=== PATIENT | male | born 1990 | race American Indian/Alaskan Native ===

== ENCOUNTER 2017-01-12 10:02 | Observation (INO) | payer MEDICAID, OTHER ==
[2017-01-12 10:12] VITALS: BMI 22.3
[2017-01-12] MEDS ORDERED: Sodium Chloride 0.9% 1,000 ML IV STA (10:17)
--- NOTE | 2017-01-12 10:17 | ED PDOC ---
Arrival/HPI - General Time Seen by Provider: 01/12/17 10:10 Historian: Patient - History of Present Illness Narrative History of Present Illness (Text): 01/12/17 10:19 26 year old male, no pmh, nkda, complaining of lt. sided chest pain started yesterday with no fall or trauma. Aching and sharp pain, on and off, aggravated by moving of the body especially in supine position to standing position, no alleviating factors, each episode is couple seconds, started about 2-3 weeks ago but severely last night, no coughing or night sweat, no IV drug use, no palpitation, no rash, no numbness or tingling. Pt. stated that the pain is non-radiating, no rash, no other medical or psychological complaints. Past Medical History - Provider Review Nursing Documentation Reviewed: Yes Family/Social History - Physician Review Nursing Documentation Reviewed: Yes Family/Social History: Unknown Family HX Allergies/Home Meds Allergies/Adverse Reactions: Allergies No Known Allergies Allergy (Verified 01/12/17 11:44) Home Medications: Home Meds Medication Instructions Recorded Confirmed No Known Home Med 01/12/17 01/12/17 Review of Systems - Review of Systems Constitutional: absent: Fatigue, Fevers Eyes: absent: Vision Changes ENT: absent: Hearing Changes Respiratory: absent: SOB, Cough Cardiovascular: Chest Pain. absent: Palpitations, Edema, Orthopnea, Syncope Gastrointestinal: absent: Abdominal Pain, Nausea, Vomiting Musculoskeletal: absent: Arthralgias, Back Pain Skin: absent: Rash, Pruritis Neurological: absent: Headache, Dizziness Physical Exam Vital Signs Reviewed: Yes Vital Signs Temp Pulse Resp BP Pulse Ox 01/12/17 11:30 98.5 F 48 L 17 116/88 100 01/12/17 10:15 98.5 F 63 17 129/85 100 Temperature: Afebrile Blood Pressure: Normal Pulse: Regular Respiratory Rate: Normal Appearance: Positive for: Well-Appearing, Non-Toxic, Comfortable Pain Distress: Mild Mental Status: Positive for: Alert and Oriented X 3 - Systems Exam Head: Present: Atraumatic, Normocephalic Pupils: Present: PERRL Extroacular Muscles: Present: EOMI Conjunctiva: Present: Normal Mouth: Present: Moist Mucous Membranes Neck: Present: Normal Range of Motion, Other (no JVD). No: Lymphadenopathy, Bruit Respiratory/Chest: Present: Clear to Auscultation, Good Air Exchange. No: Respiratory Distress, Accessory Muscle Use Cardiovascular: Present: Regular Rate and Rhythm, Normal S1, S2, Peripheal Pulses Present, Other (no pedal edema). No: Murmurs, Irregular Rhythm, Rub, Gallop Abdomen: Present: Normal Bowel Sounds. No: Tenderness, Distention, Peritoneal Signs Back: Present: Normal Inspection Upper Extremity: Present: Normal Inspection. No: Cyanosis, Edema Lower Extremity: Present: Normal Inspection. No: Edema Neurological: Present: GCS=15, CN II-XII Intact, Speech Normal Skin: Present: Warm, Dry, Normal Color. No: Rashes Psychiatric: Present: Alert, Oriented x 3, Normal Insight, Normal Concentration Medical Decision Making ED Course and Treatment: 01/12/17 10:30 -labs/cardiac enzymes -ekg/cxr -IVF/toradol -Observe and reassess 01/12/17 11:21 -EKG: Sinus Bradycardia @ 53 BPM, no ST elevation or depression but there is early repolarization on the V3 to V6 and inferior leads, no T wave inversion. -Chest xray: no active disease, no visible pneumothorax, no visible pleural effusion. -Labs are non-significant with negative 1set set of troponin. -UDS show +cannabinoid -Urinalysis show no UTI -Pt. has no pmd and no insurance, unable to follow up with any of the doctor. -I spoke to Dr. Cohen and discussed about the case, pt. should get cardiac evaluation and the echocardiogram which on one of my clinical concerning is pericarditis. -I discussed with DR. Kaiser and discussed about my concerns, he will put in the remote tele observation. 01/12/17 11:26 -Pt. has no active chest pain at this point. - Lab Interpretations Lab Results: 01/12/17 10:34 01/12/17 10:34 Lab Results 01/12/17 11:10: Urine Color Yellow, Urine Appearance Clear, Urine pH 6.0, Ur Specific [place] 1.025, Urine Protein Trace H, Urine Glucose (UA) Negative, Urine Ketones Negative, Urine Blood Negative, Urine Nitrate Negative, Urine Bilirubin Negative, Urine Urobilinogen 0.2, Ur Leukocyte Esterase Negative, Urine RBC 0 - 2, Urine WBC Negative 01/12/17 11:06: Urine Opiates Screen Negative, Urine Methadone Screen Negative, Ur Barbiturates Screen Negative, Ur Phencyclidine Scrn Negative, Ur Amphetamines Screen Negative, U Benzodiazepines Scrn Negative, U Oth Cocaine Metabols Negative, U Cannabinoids Screen Positive H 01/12/17 10:34: WBC 4.7, RBC 5.09, Hgb 14.5, Hct 43.5, MCV 85.5, MCH 28.5, MCHC 33.3, RDW 14.5, Plt Count 191, MPV 9.6, Gran % 51.6, Lymph % (Auto) 33.8, [place] % (Auto) 9.2 H, Eos % (Auto) 4.5, Baso % (Auto) 0.9, Gran # 2.40, Lymph # 1.6, [place] # 0.4, Eos # 0.2, Baso # 0.04 01/12/17 10:34: Sodium 142, Potassium 4.5, Chloride 104, Carbon Dioxide 29, Anion Gap 14, BUN 15, Creatinine 1.2, Est GFR ( Amer) > 60, Est GFR (Non- Af Amer) > 60, Random Glucose 84, Calcium 9.5, Total Bilirubin 1.1, AST 29, ALT 33, Alkaline Phosphatase 41, Lactate Dehydrogenase 425, Total Creatine Kinase 445 H, CK-MB (CK-2) Pending, CK-MB (CK-2) % Pending, Troponin I < 0.01, Total Protein 7.5, Albumin 4.4, Globulin 3.1, Albumin/Globulin Ratio 1.4 I have reviewed the lab results: Yes Interpretation: No clinic. lab abnormalty - RAD Interpretation Radiology Orders: 01/12/17 10:17 CHEST PORTABLE [RAD] Stat HISTORY: medical clearance COMPARISON: No prior. FINDINGS: LUNGS: No active pulmonary disease. PLEURA: No significant pleural effusion identified, no pneumothorax apparent. CARDIOVASCULAR: Normal. OSSEOUS STRUCTURES: No significant abnormalities. VISUALIZED UPPER ABDOMEN: Normal. OTHER FINDINGS: None. IMPRESSION: No active disease. Video Network Engineer: Radiologist - EKG Interpretation EKG Interpretation (Text): 01/12/17 10:32 -EKG: Sinus Bradycardia @ 53 BPM, no ST elevation or depression but there is early repolarization on the V3 to V6 and inferior leads, no T wave inversion. Interpreted by ED Physician: Yes Type: 12 lead EKG - Medication Orders Current Medication Orders: Discontinued Medications Sodium Chloride (Sodium Chloride 0.9%) 1,000 mls @ 999 mls/hr IV .Q1H1M STA Stop: 01/12/17 11:17 Last Admin: 01/12/17 10:36 Dose: 999 mls/hr eMAR Start Stop Document 01/12/17 10:36 IT (Rec: 01/12/17 10:36 IT [id number]) Intravenous Solution Start Date 01/12/17 Start Time 10:36 End Date 01/12/17 End time 11:36 Total Infusion Time 60 Ketorolac Tromethamine (Toradol) 30 mg IVP STAT STA Stop: 01/12/17 10:18 Last Admin: 01/12/17 10:33 Dose: 30 mg MAR Pain Assessment Document 01/12/17 10:33 IT (Rec: 01/12/17 10:36 IT [id number]) Pain Reassessment Is this a pain reassessment? No Sleep Is patient sleeping during reassessment? No Presence of Pain Presence of Pain Yes Pain Scale Used Pain Scale Used Numeric IVP Administration Document 01/12/17 10:33 IT (Rec: 01/12/17 10:36 IT [id number]) Charges for Administration # of IVP Administrations 1 - PA / DISTRICT MANAGER [employer] / Resident Statement MD/DO has reviewed & agrees with the documentation as recorded. Disposition/Present on Arrival - Present on Arrival Any Indicators Present on Arrival: No History of DVT/PE: No History of Uncontrolled Diabetes: No Urinary Catheter: No History of Decub. Ulcer: No - Disposition Have Diagnosis and Disposition been Completed?: Yes Diagnosis: Abnormal electrocardiogram [ECG] [EKG], Chest pain Disposition: HOSPITALIZED Disposition Time: 11:08 Patient Plan: Observation, Telemetry Patient Problems: Current Active Problems Problem Status Onset Abnormal electrocardiogram [ECG] [EKG] Acute Chest pain Acute Condition: STABLE
[2017-01-12 10:38] LABS: BASO # 0.04 K/mm3 (0.0-2.0); BASO % 0.9 % (0.0-3.0); EOS # 0.2 (0.0-0.7); EOS % 4.5 % (1.5-5.0); GRAN # 2.4 (1.4-6.5); GRAN % 51.6 % (50.0-68.0); HEMATOCRIT 43.5 % (42.0-52.0); LYMPH # 1.6 (1.2-3.4); LYMPH % 33.8 % (22.0-35.0); MEAN CELL VOLUME 85.5 fl (80.0-105.0); MEAN CORPUSCULAR HEMOGLOBIN 28.5 pg (25.0-35.0); MEAN CORPUSCULAR HGB CONC 33.3 g/dl (31.0-37.0); MEAN PLATELET VOLUME 9.6 fl (7.0-11.0); MONO # 0.4 (0.1-0.6); MONO % 9.2 % (1.0-6.0); RED CELL DISTRIBUTION WIDTH 14.5 % (11.5-14.5); WHITE BLOOD COUNT 4.7 10^3/ul (4.5-11.0)
[2017-01-12 10:48] LABS: ALB/GLOB RATIO 1.4 (1.1-1.8); ALKALINE PHOSPHATASE 41 U/L (38-126); ALT/SGPT 33 U/L (7-56); AST/SGOT 29 U/L (17-59); BILIRUBIN,TOTAL 1.1 mg/dL (0.2-1.3); BLOOD UREA NITROGEN 15 mg/dL (7-21); CALCIUM 9.5 mg/dL (8.4-10.5); CARBON DIOXIDE 29 mmol/L (21-33); CHLORIDE 104 mmol/L (98-107); GFR AFRICAN-AMERICAN > 60; GLUCOSE,RANDOM 84 mg/dL (70-110); POTASSIUM 4.5 mmol/L (3.6-5.0); SODIUM 142 mmol/L (132-148); TOTAL PROTEIN 7.5 g/dL (5.8-8.3)
[2017-01-12 11:03] LABS: TROPONIN I < 0.01 ng/mL
--- NOTE | 2017-01-12 11:09 | RAD ---
HISTORY: medical clearance COMPARISON: No prior. FINDINGS: LUNGS: No active pulmonary disease. PLEURA: No significant pleural effusion identified, no pneumothorax apparent. CARDIOVASCULAR: Normal. OSSEOUS STRUCTURES: No significant abnormalities. VISUALIZED UPPER ABDOMEN: Normal. OTHER FINDINGS: None. IMPRESSION: No active disease.
[2017-01-12 11:20] LABS: URINE BILIRUBIN NEGATIVE (NEGATIVE); URINE BLOOD NEGATIVE (NEGATIVE); URINE GLUCOSE (UA) NEGATIVE (NEGATIVE); URINE KETONE NEGATIVE (NEGATIVE); URINE LEUKOCYTE ESTERASE NEGATIVE Leu/uL (NEGATIVE); URINE PROTEIN TRACE mg/dL (<30 mg/dL); URINE UROBILINOGEN 0.2 E.U./dL (<1 E.U./dL)
[2017-01-12 11:22] LABS: URINE APPEARANCE CLEAR (CLEAR); URINE COLOR YELLOW (YELLOW)
[2017-01-12 11:38] LABS: URINE RBC 0 - 2 /hpf (0-2); URINE WBC NEGATIVE /hpf (0-6)
--- NOTE | 2017-01-12 12:29 | CP.PCM.HP ---
<Umair Jaramillo - Last Filed: 01/12/17 12:43> History of Present Illness - History of Present Illness History of Present Illness: This is a 26 year old male with no past medical history who presents to the emergency room complaining of non-radiating left sided chest pain that has been occurring for the past three weeks. The patient reports that chest pain is throbbing in nature and that it comes and goes throughout the day. The patient denies any alleviating or modifying factors. The patient denies any lightheadedness, dizziness, changes in vision, abdominal pain, constipation, syncopal episodes, orthopnea, headaches, diarrhea, fevers, chills, or any other complaints. PMD: None PMedical hx:See HPI Medications: See MAR Allergies: Nkda Social hx: Smokes cigarettes once a week. Drinks on 4-5 beers on the weekend. Caterina was used this past weekend. Surgical hx: Present on Admission - Present on Admission Any Indicators Present on Admission: No Review of Systems - Constitutional Constitutional: As Per HPI - EENT Eyes: As Per HPI Ears: As Per HPI Nose/Mouth/Throat: As Per HPI - Cardiovascular Cardiovascular: As Per HPI - Respiratory Respiratory: As Per HPI - Gastrointestinal Gastrointestinal: As Per HPI - Genitourinary Genitourinary: As Per HPI - Musculoskeletal Musculoskeletal: As Per HPI - Integumentary Integumentary: As Per HPI - Neurological Neurological: As Per HPI - Endocrine Endocrine: As Per HPI - Hematologic/Lymphatic Hematologic: As Per HPI Past Patient History - Infectious Disease Hx of Infectious Diseases: None - Past Social History Smoking Status: Current Some Days Smoker - CARDIAC Hx Cardiac Disorders: No - PULMONARY Hx Respiratory Disorders: No - NEUROLOGICAL Hx Neurological Disorder: No - HEENT Hx HEENT Problems: No - RENAL Hx Chronic Kidney Disease: No - ENDOCRINE/METABOLIC Hx Endocrine Disorders: No - HEMATOLOGICAL/ONCOLOGICAL Hx Blood Disorders: No - INTEGUMENTARY Hx Dermatological Problems: No - MUSCULOSKELETAL/RHEUMATOLOGICAL Hx Musculoskeletal Disorders: No - GASTROINTESTINAL Hx Gastrointestinal Disorders: No - GENITOURINARY/GYNECOLOGICAL Hx Genitourinary Disorders: No - PSYCHIATRIC Hx Substance Use: No - SURGICAL HISTORY Hx Surgeries: No - ANESTHESIA Hx Anesthesia: No Meds Allergies/Adverse Reactions: Allergies Allergy/AdvReac Type Severity Reaction Status Date / Time No Known Allergies Allergy Verified 01/12/17 11:44 Physical Exam - Head Exam Head Exam: ATRAUMATIC, NORMAL INSPECTION, NORMOCEPHALIC - Eye Exam Eye Exam: EOMI, Normal appearance, PERRL. absent: Periorbital tenderness Pupil Exam: NORMAL ACCOMODATION, PERRL. absent: Irregular, Unequal - ENT Exam ENT Exam: Mucous Membranes Moist, Normal Exam. absent: Normal Oropharynx, TM's Normal Bilaterally - Neck Exam Neck exam: Positive for: Normal Inspection. Negative for: Lymphadenopathy, Thyromegaly - Respiratory Exam Respiratory Exam: Clear to Auscultation Bilateral, NORMAL BREATHING PATTERN. absent: Chest Wall Tenderness, Prolonged Expiratory Phase, Wheezes, Respiratory Distress - Cardiovascular Exam Cardiovascular Exam: REGULAR RHYTHM, RRR, +S1, +S2. absent: Gallop, Rubs - GI/Abdominal Exam GI & Abdominal Exam: Normal Bowel Sounds, Soft. absent: Hypoactive Bowel Sounds , Organomegaly - Extremities Exam Extremities exam: Positive for: full ROM, normal inspection. Negative for: pedal edema - Back Exam Back exam: NORMAL INSPECTION. absent: CVA tenderness (L), CVA tenderness (R), paraspinal tenderness - Neurological Exam Neurological exam: Alert, CN II-XII Intact, Oriented x3, Reflexes Normal - Psychiatric Exam Psychiatric exam: Normal Affect, Normal Mood - Skin Skin Exam: Dry, Intact, Normal Color Results - Vital Signs Recent Vital Signs: Last Vital Signs Temp 98.5 F 01/12/17 11:30 Pulse 48 L 01/12/17 11:30 Resp 17 01/12/17 11:30 BP 116/88 01/12/17 11:30 Pulse Ox 100 01/12/17 11:30 - Labs Result Diagrams: 01/12/17 10:34 01/12/17 10:34 Assessment & Plan - Assessment and Plan (Free Text) Assessment: This is a 26 year old male with no past medical history who comes in complaining of chest pain. Patient was admitted for r/o ACS. Plan: 1. Chest pain r/o ACS -Troponins x2 Ordered. Will f/u and discharge if negative. -Aspirin 81mg -Cardiology consult. Will f/u with rec's. 2. Smoking cessation -Couseled patient on stopping smoking tobacco and marijuana usage. -Consider Nicotine patch if patient reports withdrawal symptoms. <Stef Mckeon - Last Filed: 01/13/17 13:28> Results - Vital Signs Recent Vital Signs: Last Vital Signs Temp 97.8 F 01/13/17 08:23 Pulse 47 L 01/13/17 10:00 Resp 18 01/13/17 08:23 BP 127/62 01/13/17 08:23 Pulse Ox 98 01/13/17 08:23 - Labs Result Diagrams: 01/12/17 10:34 01/12/17 10:34 Labs: Laboratory Results - last 24 hr 01/12/17 01/12/17 01/12/17 15:24 15:24 20:55 ESR 7 Troponin I < 0.01 < 0.01 Attending/Attestation - Attestation I have personally seen and examined this patient.: Yes I have fully participated in the care of the patient.: Yes I have reviewed all pertinent clinical information: Yes Notes (Text): 01/13/17 13:27 Patient was seen and examined with healthcare or medical. Agreed with resident assessment and plan. 26 yrs old male with aypical chest pain, OWEN Score <1 will monitor in telemetry for serial troponin. If 3 sets are negative, can be discharged home. Management plan was discussed in detail with patient Education was provided.
[2017-01-12] MEDS ORDERED: Pneumococcal 23-Valent Vaccine IM ONE (13:53)
[2017-01-12] MEDS ORDERED: Influenza Vaccine 60 mcg/0.5 mL SYR (4YR UP) IM ONE (13:53)
--- NOTE | 2017-01-12 19:53 | CARD ---
APPROVED REPORT EKG Measurement Heart [id number] OR 140P2 [id number] <Conclusion> Sinus bradycardia ST elevation, consider early repolarization, pericarditis, or injury Abnormal ECG
[2017-01-13 00:09] VITALS: RESP 18
--- NOTE | 2017-01-13 00:31 | CON ---
DATE: 01/12/2017 CARDIOLOGY CONSULTATION HISTORY OF PRESENT ILLNESS: The patient is a 26-year-old male who presents with several days of atypical chest pain which is described as a fullness as well as left scapular pain. No relations to exertion. No increase with ambulation. No relation to change of position. The patient is free of cardiac history. Negative for diabetes mellitus. Negative for hypertension. FAMILY HISTORY: Negative family history for CAD. SOCIAL HISTORY: The patient does not smoke. No drugs are noted. REVIEW OF SYSTEMS: A 14-point review of systems was reviewed in detail. No cardiac symptomatology is noted. PHYSICAL EXAMINATION: VITAL SIGNS: Blood pressure 118/63, heart rate is in the 40s at rest and increases appropriately during activity. NECK: Negative JVD. LUNGS: Without rales. HEART: S1, S2. EXTREMITIES: Without edema. LABORATORY DATA: The CPK is 445. Troponin is 0.01. Toxicology is positive for cannabinoids. EKG shows minor ST elevations consistent with pericarditis. IMPRESSION: 1. Atypical chest pain. 2. No evidence for acute coronary syndrome. 3. Resting bradycardia. 4. Rule out pericarditis. PLAN: Given these findings, we will obtain a sed rate. In addition, an echocardiogram has been ordered. Crow Cuadra MD
[2017-01-13 08:24] VITALS: BP 127/62; TEMP 97.8; O2SAT 98
--- NOTE | 2017-01-13 11:13 | CP.PCM.DIS ---
<Umair Jaramillo - Last Filed: 01/13/17 16:26> Provider - Provider Date of Admission: 01/12/17 11:27 Attending physician: Stef Mckeon MD Primary care physician: NO PRIMARY CARE PROVIDER Time Spent in preparation of Discharge (in minutes): 35 Hospital Course - Lab Results Lab Results: Most Recent Lab Values WBC 4.7 10^3/ul (4.5-11.0) 01/12/17 10:34 RBC 5.09 10^6/uL (3.5-6.1) 01/12/17 10:34 Hgb 14.5 g/dL (14.0-18.0) 01/12/17 10:34 Hct 43.5 % (42.0-52.0) 01/12/17 10:34 MCV 85.5 fl (80.0-105.0) 01/12/17 10:34 MCH 28.5 pg (25.0-35.0) 01/12/17 10:34 MCHC 33.3 g/dl (31.0-37.0) 01/12/17 10:34 RDW 14.5 % (11.5-14.5) 01/12/17 10:34 Plt Count 191 10^3/uL (120.0-450.0) 01/12/17 10:34 MPV 9.6 fl (7.0-11.0) 01/12/17 10:34 Gran % 51.6 % (50.0-68.0) 01/12/17 10:34 Lymph % (Auto) 33.8 % (22.0-35.0) 01/12/17 10:34 Grand % (Auto) 9.2 % (1.0-6.0) H 01/12/17 10:34 Eos % (Auto) 4.5 % (1.5-5.0) 01/12/17 10:34 Baso % (Auto) 0.9 % (0.0-3.0) 01/12/17 10:34 Gran # 2.40 (1.4-6.5) 01/12/17 10:34 Lymph # 1.6 (1.2-3.4) 01/12/17 10:34 Grand # 0.4 (0.1-0.6) 01/12/17 10:34 Eos # 0.2 (0.0-0.7) 01/12/17 10:34 Baso # 0.04 K/mm3 (0.0-2.0) 01/12/17 10:34 ESR 7 mm/hr (0.0-15.0) 01/12/17 15:24 Sodium 142 mmol/L (132-148) 01/12/17 10:34 Potassium 4.5 mmol/L (3.6-5.0) 01/12/17 10:34 Chloride 104 mmol/L (98-107) 01/12/17 10:34 Carbon Dioxide 29 mmol/L (21-33) 01/12/17 10:34 Anion Gap 14 (10-20) 01/12/17 10:34 BUN 15 mg/dL (7-21) 01/12/17 10:34 Creatinine 1.2 mg/dL (0.8-1.5) 01/12/17 10:34 Est GFR ( Amer) > 60 01/12/17 10:34 Est GFR (Non-Af Amer) > 60 01/12/17 10:34 Random Glucose 84 mg/dL (70-110) 01/12/17 10:34 Calcium 9.5 mg/dL (8.4-10.5) 01/12/17 10:34 Total Bilirubin 1.1 mg/dL (0.2-1.3) 01/12/17 10:34 AST 29 U/L (17-59) 01/12/17 10:34 ALT 33 U/L (7-56) 01/12/17 10:34 Alkaline Phosphatase 41 U/L (38-126) 01/12/17 10:34 Lactate Dehydrogenase 425 U/L (333-699) 01/12/17 10:34 Total Creatine Kinase 445 U/L (35-230) H 01/12/17 10:34 CK-MB (CK-2) 1.5 ng/mL (0.0-3.6) 01/12/17 10:34 CK-MB (CK-2) % Cancelled 01/12/17 10:34 Troponin I < 0.01 ng/mL 01/12/17 20:55 Total Protein 7.5 g/dL (5.8-8.3) 01/12/17 10:34 Albumin 4.4 g/dL (3.0-4.8) 01/12/17 10:34 Globulin 3.1 gm/dL 01/12/17 10:34 Albumin/Globulin Ratio 1.4 (1.1-1.8) 01/12/17 10:34 Urine Color Yellow (YELLOW) 01/12/17 11:10 Urine Appearance Clear (CLEAR) 01/12/17 11:10 Urine pH 6.0 (4.7-8.0) 01/12/17 11:10 Ur Specific [place] 1.025 (1.005-1.035) 01/12/17 11:10 Urine Protein Trace mg/dL (<30 mg/dL) H 01/12/17 11:10 Urine Glucose (UA) Negative mg/dL (NEGATIVE) 01/12/17 11:10 Urine Ketones Negative mg/dL (NEGATIVE) 01/12/17 11:10 Urine Blood Negative (NEGATIVE) 01/12/17 11:10 Urine Nitrate Negative (NEGATIVE) 01/12/17 11:10 Urine Bilirubin Negative (NEGATIVE) 01/12/17 11:10 Urine Urobilinogen 0.2 E.U./dL (<1 E.U./dL) 01/12/17 11:10 Ur Leukocyte Esterase Negative Litzy/uL (NEGATIVE) 01/12/17 11:10 Urine RBC 0 - 2 /hpf (0-2) 01/12/17 11:10 Urine WBC Negative /hpf (0-6) 01/12/17 11:10 Urine Opiates Screen Negative (NEGATIVE) 01/12/17 11:06 Urine Methadone Screen Negative (NEGATIVE) 01/12/17 11:06 Ur Barbiturates Screen Negative (NEGATIVE) 01/12/17 11:06 Ur Phencyclidine Scrn Negative (NEGATIVE) 01/12/17 11:06 Ur Amphetamines Screen Negative (NEGATIVE) 01/12/17 11:06 U Benzodiazepines Scrn Negative (NEGATIVE) 01/12/17 11:06 U Oth Cocaine Metabols Negative (NEGATIVE) 01/12/17 11:06 U Cannabinoids Screen Positive (NEGATIVE) H 01/12/17 11:06 - Hospital Course Hospital Course: This is a 26 year old male with no past medical history who presents to the emergency room complaining of non-radiating left sided chest pain that has been occurring for the past three weeks. The patient reports that chest pain is throbbing in nature and that it comes and goes throughout the day. The patient denies any alleviating or modifying factors. The patient denies any lightheadedness, dizziness, changes in vision, abdominal pain, constipation, syncopal episodes, orthopnea, headaches, diarrhea, fevers, chills, or any other complaints. The patient had an ekg done in the ed that showed sinus bradycardia and st elevation possibly from pericarditis, early repolarization, or injury. The patient was admitted for atypical chest pain. While admitted the patient was seen by Cardiology who recommended trending troponins and order an echo. The patient's troponins came back negative x3 and the ECHO preliminary read was normal. The patient's chest pain had resolved. The patient was discharged with instructions to stop smoking marijuana and smoking and to stop using Caterina. The patient was also instructed to find and establish healthcare with a PMD within on week of discharge. Discharge Exam - Head Exam Head Exam: ATRAUMATIC, NORMAL INSPECTION, NORMOCEPHALIC - Eye Exam Eye Exam: EOMI, Normal appearance, PERRL. absent: Periorbital tenderness Pupil Exam: NORMAL ACCOMODATION, PERRL. absent: Irregular, Unequal - ENT Exam ENT Exam: Mucous Membranes Moist, Normal Oropharynx. absent: Normal Exam, TM's Normal Bilaterally - Respiratory Exam Respiratory Exam: Clear to PA & Lateral, NORMAL BREATHING PATTERN, UNREMARKABLE - Cardiovascular Exam Cardiovascular Exam: REGULAR RHYTHM, +S1, +S2. absent: RRR, Rubs - GI/Abdominal Exam GI & Abdominal Exam: Normal Bowel Sounds, Unremarkable. absent: Distended, Hypoactive Bowel Sounds, Organomegaly - Extremities Exam Extremities exam: full ROM - Back Exam Back exam: NORMAL INSPECTION. absent: CVA tenderness (L), CVA tenderness (R), paraspinal tenderness - Neurological Exam Neurological exam: Alert, CN II-XII Intact, Oriented x3, Reflexes Normal - Psychiatric Exam Psychiatric exam: Anxious, Normal Affect, Normal Mood - Skin Skin Exam: Dry, Intact, Normal Color Discharge Plan - Follow Up Plan Condition: STABLE Disposition: HOME/ ROUTINE Instructions: Chest Pain (DC) Additional Instructions: Patient advised to f/u with PMD within one week of discharge. Patient strongly advised to stop smoking marijuana, cigarettes and stop Ecstasy usage. Patient advised to return to emergency department for any new or worsening symptoms. Referrals: PCP,NO [Primary Care Provider] - <Stef Mckeon - Last Filed: 01/14/17 13:44> Provider - Provider Date of Admission: 01/12/17 11:27 Attending physician: Stef Mckeon MD Primary care physician: NO PRIMARY CARE PROVIDER Hospital Course - Lab Results Lab Results: Most Recent Lab Values WBC 4.7 10^3/ul (4.5-11.0) 01/12/17 10:34 RBC 5.09 10^6/uL (3.5-6.1) 01/12/17 10:34 Hgb 14.5 g/dL (14.0-18.0) 01/12/17 10:34 Hct 43.5 % (42.0-52.0) 01/12/17 10:34 MCV 85.5 fl (80.0-105.0) 01/12/17 10:34 MCH 28.5 pg (25.0-35.0) 01/12/17 10:34 MCHC 33.3 g/dl (31.0-37.0) 01/12/17 10:34 RDW 14.5 % (11.5-14.5) 01/12/17 10:34 Plt Count 191 10^3/uL (120.0-450.0) 01/12/17 10:34 MPV 9.6 fl (7.0-11.0) 01/12/17 10:34 Gran % 51.6 % (50.0-68.0) 01/12/17 10:34 Lymph % (Auto) 33.8 % (22.0-35.0) 01/12/17 10:34 Grand % (Auto) 9.2 % (1.0-6.0) H 01/12/17 10:34 Eos % (Auto) 4.5 % (1.5-5.0) 01/12/17 10:34 Baso % (Auto) 0.9 % (0.0-3.0) 01/12/17 10:34 Gran # 2.40 (1.4-6.5) 01/12/17 10:34 Lymph # 1.6 (1.2-3.4) 01/12/17 10:34 Grand # 0.4 (0.1-0.6) 01/12/17 10:34 Eos # 0.2 (0.0-0.7) 01/12/17 10:34 Baso # 0.04 K/mm3 (0.0-2.0) 01/12/17 10:34 ESR 7 mm/hr (0.0-15.0) 01/12/17 15:24 Sodium 142 mmol/L (132-148) 01/12/17 10:34 Potassium 4.5 mmol/L (3.6-5.0) 01/12/17 10:34 Chloride 104 mmol/L (98-107) 01/12/17 10:34 Carbon Dioxide 29 mmol/L (21-33) 01/12/17 10:34 Anion Gap 14 (10-20) 01/12/17 10:34 BUN 15 mg/dL (7-21) 01/12/17 10:34 Creatinine 1.2 mg/dL (0.8-1.5) 01/12/17 10:34 Est GFR ( Amer) > 60 01/12/17 10:34 Est GFR (Non-Af Amer) > 60 01/12/17 10:34 Random Glucose 84 mg/dL (70-110) 01/12/17 10:34 Calcium 9.5 mg/dL (8.4-10.5) 01/12/17 10:34 Total Bilirubin 1.1 mg/dL (0.2-1.3) 01/12/17 10:34 AST 29 U/L (17-59) 01/12/17 10:34 ALT 33 U/L (7-56) 01/12/17 10:34 Alkaline Phosphatase 41 U/L (38-126) 01/12/17 10:34 Lactate Dehydrogenase 425 U/L (333-699) 01/12/17 10:34 Total Creatine Kinase 445 U/L (35-230) H 01/12/17 10:34 CK-MB (CK-2) 1.5 ng/mL (0.0-3.6) 01/12/17 10:34 CK-MB (CK-2) % Cancelled 01/12/17 10:34 Troponin I < 0.01 ng/mL 01/12/17 20:55 Total Protein 7.5 g/dL (5.8-8.3) 01/12/17 10:34 Albumin 4.4 g/dL (3.0-4.8) 01/12/17 10:34 Globulin 3.1 gm/dL 01/12/17 10:34 Albumin/Globulin Ratio 1.4 (1.1-1.8) 01/12/17 10:34 Urine Color Yellow (YELLOW) 01/12/17 11:10 Urine Appearance Clear (CLEAR) 01/12/17 11:10 Urine pH 6.0 (4.7-8.0) 01/12/17 11:10 Ur Specific [place] 1.025 (1.005-1.035) 01/12/17 11:10 Urine Protein Trace mg/dL (<30 mg/dL) H 01/12/17 11:10 Urine Glucose (UA) Negative mg/dL (NEGATIVE) 01/12/17 11:10 Urine Ketones Negative mg/dL (NEGATIVE) 01/12/17 11:10 Urine Blood Negative (NEGATIVE) 01/12/17 11:10 Urine Nitrate Negative (NEGATIVE) 01/12/17 11:10 Urine Bilirubin Negative (NEGATIVE) 01/12/17 11:10 Urine Urobilinogen 0.2 E.U./dL (<1 E.U./dL) 01/12/17 11:10 Ur Leukocyte Esterase Negative Litzy/uL (NEGATIVE) 01/12/17 11:10 Urine RBC 0 - 2 /hpf (0-2) 01/12/17 11:10 Urine WBC Negative /hpf (0-6) 01/12/17 11:10 Urine Opiates Screen Negative (NEGATIVE) 01/12/17 11:06 Urine Methadone Screen Negative (NEGATIVE) 01/12/17 11:06 Ur Barbiturates Screen Negative (NEGATIVE) 01/12/17 11:06 Ur Phencyclidine Scrn Negative (NEGATIVE) 01/12/17 11:06 Ur Amphetamines Screen Negative (NEGATIVE) 01/12/17 11:06 U Benzodiazepines Scrn Negative (NEGATIVE) 01/12/17 11:06 U Oth Cocaine Metabols Negative (NEGATIVE) 01/12/17 11:06 U Cannabinoids Screen Positive (NEGATIVE) H 01/12/17 11:06 Attending/Attestation - Attestation I have personally seen and examined this patient.: Yes I have fully participated in the care of the patient.: Yes I have reviewed all pertinent clinical information, including history, physical exam and plan: Yes Notes (Text): 01/14/17 13:42 Patient was seen and examined with medical device sales. Agreed with resident assessment and plan. 26 yrs old male with atypical chest pain, serial troponins are normal.Echo showed normal systolic function. Patient was evaluated by cardiology, no further work up is recommended. Management plan was discussed in detail with patient Education was provided.
[2017-01-13 12:05] VITALS: PULSE 47
--- NOTE | 2017-01-13 21:27 | CARD ---
APPROVED REPORT EXAM: Two-dimensional and M-mode echocardiogram with Doppler and color Doppler. INDICATION Chest Pain 2D DIMENSIONS Left Atrium (2D)3.2 (1.6-4.0cm)IVSd0.9 (0.7-1.1cm) LVDd5.1 (3.9-5.9cm)PWd1.1 (0.7-1.1cm) LVDs3.2 (2.5-4.0cm)FS (%) 37.4 % LVEF (%)67.2 (>50%) M-Mode DIMENSIONS Aortic Root2.70 (2.2-3.7cm)Aortic Cusp Exc.1.70 (1.5-2.0cm) Aortic Valve AoV Peak Cwcpwjww482.0cm/Reji Peak GR.10mmHg Mitral Valve MV E Bclvmdwh09.1cm/sMV A Mhqbegpc08.5cm/sE/A ratio1.2 TDI E/Lateral E'0.0E/Medial E'0.0 LEFT VENTRICLE The left ventricle is normal size. There is normal left ventricular wall thickness. The left ventricular function is normal. The left ventricular ejection fraction is within the normal range. There is normal LV segmental wall motion. The left ventricular diastolic function is normal. RIGHT VENTRICLE The right ventricle is normal size. There is normal right ventricular wall thickness. The right ventricular systolic function is normal. ATRIA The left atrium size is normal. The right atrium size is normal. AORTIC VALVE The aortic valve is normal in structure. No aortic regurgitation is present. There is no aortic valvular stenosis. MITRAL VALVE The mitral valve is normal in structure. There is no mitral valve regurgitation noted. TRICUSPID VALVE The tricuspid valve is normal in structure. There is no tricuspid valve regurgitation noted. GREAT VESSELS The aortic root is normal in size. PERICARDIAL EFFUSION There is no pericardial effusion. <Conclusion> The left ventricle is normal size. There is normal left ventricular wall thickness. The left ventricular function is normal. The left ventricular ejection fraction is within the normal range. There is normal LV segmental wall motion. The left ventricular diastolic function is normal.
== END 2017-01-13 14:57 | disposition home or self-care (01) ==
LOC: ED 10:02 → ERH 11:27 → 3RNO 12:32
PROVIDERS: ADMIT Internal Medicine; ATTEND Internal Medicine
DX: R07.89 Other chest pain (principal); R00.1 Bradycardia, unspecified; F12.90 Cannabis use, unspecified, uncomplicated
CPT/HCPCS: 71010; 80053; 81001; 82550; 82553; 83615; 84484; 85025; 85651; 93005; 93306; 96360; 96374; 99283; G0378; G0480; J1885; J7040